=== PATIENT | female | born 2000 | race Caucasian/White ===

== ENCOUNTER 2021-08-11 11:09 | Day surgery (SDC) | payer OTHER ==
[2021-08-11] MEDS ORDERED: hydrALAZINE 20 MG/ML VIAL SLOW IVP PRN (11:24)
[2021-08-11] MEDS ORDERED: Lactated Ringer's 1,000 ML IV SCH (11:30)
[2021-08-11 12:08] LABS: Bilirubin Neg (Negative); Blood, Urine 10 (Negative); Clarity Clear (Clear); Glucose, Urine (Dipstick) Normal (Negative); Ketone, Urine Negative (Negative); Leukocyte Negative (Negative); Nitrite Negative (Negative); Protein, Urine (Dipstick) 15 mg/dl (Neg-Trace); Specific Gravity, Urine 1.015 (1.002-1.036); pH, Urine 6.5 (5.0-9.0)
[2021-08-11 12:12] LABS: Urine Culture Reflex No No
[2021-08-11 12:21] LABS: RBC/HPF 0-3 HPF (0-3); Squamous Epithelial 0-3 HPF (0-3); WBC/HPF 0-3 HPF (0-3)
[2021-08-11 12:22] LABS: Bacteria/HPF Rare-Few HPF (None Seen); Sperm/HPF 3+ HPF (None Seen)
== END 2021-08-11 13:13 | disposition home health service (06) ==
LOC: EDSTATUS 11:09 → CSHLD/OP 11:09
PROVIDERS: ATTEND Obstetrics & Gynecology
DX: O47.03 False labor before 37 completed weeks of gestation, third trimester (principal); O99.013 Anemia complicating pregnancy, third trimester; O99.820 Streptococcus B carrier state complicating pregnancy; Z3A.35 35 weeks gestation of pregnancy; Z79.82 Long term (current) use of aspirin; Z88.0 Allergy status to penicillin
CPT/HCPCS: 81001

== ENCOUNTER 2021-08-28 21:26 | Inpatient (IN) | payer OTHER ==
[~2021-08-28 21:26] MED LIST: Bupivacaine HCl 0.5%/Epinephrine 1:200,000/PF 30 ml Vial ONE
[2021-08-28] MEDS ORDERED: HYDROcodone/Acetaminophen 5/325 mg Tablet PO PRN (21:38)
[2021-08-28] MEDS ORDERED: Methylergonovine 0.2 MG/ML VIAL IM PRN (21:38)
[2021-08-28] MEDS ORDERED: Misoprostol 200 MCG TAB PR PRN (21:38)
[2021-08-28] MEDS ORDERED: hydrALAZINE 20 MG/ML VIAL SLOW IVP PRN (21:38)
[2021-08-28] MEDS ORDERED: Butorphanol Tartrate 1 MG/ML VIAL SLOW IVP PRN (21:38)
[2021-08-28] MEDS ORDERED: Carboprost 250 MCG/ML AMP IM PRN (21:38)
[2021-08-28] MEDS ORDERED: Ibuprofen 800 MG TAB PO PRN (21:38)
[2021-08-28] MEDS ORDERED: Diphenoxylate HCl/Atropine Tablet PO PRN (21:38)
[2021-08-28] MEDS ORDERED: Acetaminophen 500 MG TAB PO PRN (21:38)
[2021-08-28] MEDS ORDERED: Ondansetron PF 4 MG/2 ML Vial IVP PRN (21:38)
[2021-08-28] MEDS ORDERED: Lidocaine 1% (PF) 30 ML VIAL SC PRN (21:38)
[2021-08-28] MEDS ORDERED: Promethazine HCl 25 MG/ML VIAL IM PRN (21:38)
[2021-08-28] MEDS ORDERED: NS w/ Oxytocin 30 units 500 ML IV SCH (21:45)
[2021-08-28] MEDS ORDERED: Lactated Ringer's 1,000 ML IV SCH (21:45)
[2021-08-28] MEDS ORDERED: ceFAZolin 2 GM/Dextrose 50 ML 2 GM in Premix Bag 1 BAG IVPB SCH (22:00)
[2021-08-28 22:05] VITALS: BMI 28.3
[2021-08-28 22:49] LABS: Hemoglobin 8.3 g/dL (12.0-15.5); Mean Corpuscular Hemoglobin 20.6 pg (27.0-33.0); Mean Corpuscular Volume 71.1 fl (81.6-98.3); Mean Platelet Volume 9.8 fl (7.4-10.4); Platelet Count 302 10x3/uL (150-450); RBC Distribution Width 16.4 % (11.5-14.5); Red Blood Cell (RBC) Count 4.02 10x6/uL (3.90-5.03); White Blood Cell (WBC) Count 10.1 10x3/uL (3.5-10.5)
[2021-08-28 23:16] LABS: Hep B Surf Ag Non-Reactive S/CO (NonReactive); Syphilis Antibody Nonreactive (Nonreactive); Syphilis Antibody Index 0.03 S/CO (<1.00 Non-Reactive)
[2021-08-28 23:19] LABS: HBSAg Index 0.23 S/CO (0-0.99)
[2021-08-29] MEDS ORDERED: Fentanyl 2 mcg/Bup 0.1% Cadd 100 ML ONE (03:55)
[2021-08-29] MEDS ORDERED: CEFAZOLIN 1 GM in Sodium Chloride 0.9% 100 ML IVPB SCH (04:00)
[2021-08-29] MEDS ORDERED: Hydrocerin (Eucerin) Cream 120 gm Jar TOP PRN (04:31)
[2021-08-29] MEDS ORDERED: Promethazine HCl 25 MG/ML VIAL IM PRN ×2 (04:31→08:44)
[2021-08-29] MEDS ORDERED: Naloxone HCl 0.4 mg/ml Vial IVP PRN ×2 (04:31)
[2021-08-29] MEDS ORDERED: diphenhydrAMINE 50 MG/ML VIAL IVP PRN (04:31)
[2021-08-29] MEDS ORDERED: Ondansetron PF 4 MG/2 ML Vial IVP PRN ×2 (04:31→08:44)
[2021-08-29] MEDS ORDERED: ePHEDrine Sulfate 50 MG/10 ML VIAL SLOW IVP PRN (04:31)
[2021-08-29] MEDS ORDERED: Lactated Ringer's 500 ML IV PRN (04:31)
[2021-08-29] MEDS ORDERED: Acetaminophen 325 MG TAB PO PRN (04:31)
[2021-08-29] MEDS ORDERED: Fentanyl 2 mcg/Bupivacaine 0.1% Cassette 100 ML EPIDURAL SCH (04:45)
[2021-08-29] MEDS ORDERED: Communication Order-Pharmacy FS SCH (04:45)
[2021-08-29] MEDS: NS w/ Oxytocin 30 units 500 ML IV SCH ×2 (06:51→08:42)
[2021-08-29] MEDS ORDERED: NS w/ Oxytocin 30 units 500 ML IV SCH (08:44)
[2021-08-29] MEDS ORDERED: Boostrix 0.5 ML (Tdap) VIAL IM ONE (08:44)
[2021-08-29] MEDS ORDERED: Bisacodyl 10 MG SUPP PR PRN (08:44)
[2021-08-29] MEDS ORDERED: Lanolin Ointment 7 GM TUBE TOP PRN (08:44)
[2021-08-29] MEDS ORDERED: Benzocaine-Menthol 82.5 ML CAN TOP PRN (08:44)
[2021-08-29] MEDS ORDERED: Milk Of Magnesia 30 ML UDCUP PO PRN (08:44)
[2021-08-29] MEDS ORDERED: hydrALAZINE 20 MG/ML VIAL SLOW IVP PRN (08:44)
[2021-08-29] MEDS ORDERED: diphenhydrAMINE 25 MG CAP PO PRN (08:44)
[2021-08-29] MEDS ORDERED: Ferrous Sulfate 325 MG TAB PO SCH (09:00)
[2021-08-29] MEDS: Ibuprofen 800 MG TAB PO SCH ×2 (12:25→21:39)
[2021-08-29] MEDS: Docusate 100 MG CAP PO SCH ×2 (18:29→21:38)
[2021-08-29] MEDS: Ferrous Sulfate 325 MG TAB PO SCH (18:30)
[2021-08-29] MEDS: Prenatal Vitamin 1 TAB PO SCH (18:30)
[2021-08-29] MEDS: HYDROcodone/Acetaminophen 5/325 mg Tablet PO PRN (18:31)
[2021-08-30] MEDS: HYDROcodone/Acetaminophen 5/325 mg Tablet PO PRN (00:31)
[2021-08-30] MEDS: Ibuprofen 800 MG TAB PO SCH ×3 (05:20→22:24)
[2021-08-30] MEDS: Prenatal Vitamin 1 TAB PO SCH (08:29)
[2021-08-30] MEDS: Ferrous Sulfate 325 MG TAB PO SCH ×2 (08:29→18:27)
[2021-08-30] MEDS: Docusate 100 MG CAP PO SCH ×2 (08:29→22:23)
[2021-08-31] MEDS: Ibuprofen 800 MG TAB PO SCH (06:21)
[2021-08-31] MEDS: Ferrous Sulfate 325 MG TAB PO SCH (08:42)
[2021-08-31] MEDS: Prenatal Vitamin 1 TAB PO SCH (08:42)
[2021-08-31] MEDS: Docusate 100 MG CAP PO SCH (08:42)
[2021-08-31 08:45] VITALS: BP 136/89; TEMP 98.3
== END 2021-08-31 13:35 | disposition home or self-care (01) | DRG 807 ==
LOC: CSHLD/OP 21:26 → CSHLD 21:44 → CSHPP 08-29 10:07
PROVIDERS: ADMIT Family Medicine; ATTEND Family Medicine
PROC: 10E0XZZ Delivery of Products of Conception, External Approach (ICD-10-PCS; principal; 2021-08-29)
DX: O99.824 Streptococcus B carrier state complicating childbirth (principal); Z37.0 Single live birth; O42.02 Full-term premature rupture of membranes, onset of labor within 24 hours of rupture; O69.1XX0 Labor and delivery complicated by cord around neck, with compression, not applicable or unspecified; Z3A.38 38 weeks gestation of pregnancy; O71.82 Other specified trauma to perineum and vulva
CPT/HCPCS: 85027; 86780; 86850; 86900; 86901; 87340; J0690; J2405; J2590; J3490